=== PATIENT | female | born 1975 | race Caucasian/White ===

== ENCOUNTER 2018-08-30 14:20 | Emergency (ER) | payer BC, OTHER ==
[~2018-08-30] VITALS: Ht 170.2 cm; Wt 72.6 kg
--- NOTE | ~2018-08-30 | EKG ---
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
[~2018-08-30 14:20] MED LIST: IBUPROFEN 600600 M1 PO; IRON325 PO
[2018-08-30] MEDS ORDERED: LIPITOR10 MG PO (14:51)
[2018-08-30 15:12] LABS: ABSOLUTE NEUTROPHILS 2.7 thou/uL (1.4-8.2); EOSINOPHILS 1.4 % (0.0-3.0); HEMATOCRIT 39.6 % (37.0-47.0); HEMOGLOBIN 13.5 gm/dL (12.0-15.0); MCH 31.5 pg (26.0-34.0); MCV 92.6 fL (80.0-100.0); MONOCYTES 4.8 % (1.0-8.0); PLATELET COUNT 239 thou/uL (150-400); POLYS 60.8 % (36.0-66.0); RBC 4.28 mil/uL (4.20-5.00); RDW 12.1 % (10.5-14.5); WBC 4.4 thou/uL (4.0-11.0)
[2018-08-30 15:19] LABS: ANION GAP 8 mmol/L (7-16); BUN 13 mg/dL (7-18); CALCIUM 9.8 mg/dL (8.5-10.1); CHLORIDE 104 mmol/L (98-107); CO2 29 mmol/L (21-32); CREATININE 0.8 mg/dL (0.6-1.0); GLUCOSE 92 mg/dL (74-106); POTASSIUM 3.2 mmol/L (3.5-5.1); SODIUM 141 mmol/L (136-145)
[2018-08-30 15:21] LABS: URINE BILIRUBIN NEGATIVE (Negative); URINE BLOOD NEGATIVE (Negative); URINE CLARITY CLEAR; URINE COLOR YELLOW; URINE GLUCOSE-RANDOM* NEGATIVE (Negative); URINE KETONES NEGATIVE (Negative); URINE LEUKOCYTES-REFLEX NEGATIVE (Negative); URINE NITRITE-REFLEX NEGATIVE (Negative); URINE PROTEIN (DIPSTICK) NEGATIVE (Negative); URINE SPECIFIC GRAVITY <= 1.005 (1.005-1.035); URINE UROBILINOGEN 0.2 E.U./dl (0.2-1.0)
[2018-08-30 15:30] LABS: ALBUMIN 4.5 g/dL (3.4-5.0); MAGNESIUM 2.1 mg/dL (1.8-2.4); SGOT 17 U/L (15-37); SGPT 27 U/L (30-65); TOTAL BILIRUBIN 0.6 mg/dL (<0.1-1.0); TOTAL PROTEIN 7.9 g/dL (6.4-8.2); TROPONIN-I <0.06 ng/mL (<0.06)
[2018-08-30] MEDS ORDERED: ANTIVERT25 MG PO (16:07)
[2018-08-30 16:25] VITALS: BP 142/84
== END 2018-08-30 16:20 | disposition home or self-care (01) ==
LOC: ER 14:20
PROVIDERS: Emergency Medicine
DX: R42 Dizziness and giddiness (principal); I10 Essential (primary) hypertension; Z88.1 Allergy status to other antibiotic agents